=== PATIENT | male | born 1980 | race Two or more races ===

== ENCOUNTER 2024-08-24 19:47 | Inpatient (IN) | payer OTHER ==
[~2024-08-24] VITALS: Ht 182.9 cm; Wt 109.8 kg
--- NOTE | 2024-08-24 20:34 | NUR ---
SE RECIBE PACIENTE ALERTA Y ORIENTADO X3, REFIERE TENER DOLRO ABDOMINAL QUE SE IRRADIA HACIA LOS COSTADOS Y NAUSEAS.
[2024-08-24] MEDS ORDERED: 0.9 % SODIUM CHLORIDE 1,000 ML IV STA (21:16)
[2024-08-24] MEDS ORDERED: KETOROLAC TROMETHAMINE 30 MG VIAL IV ONE (21:30)
[2024-08-24] MEDS ORDERED: ACETAMINOPHEN 500 MG GEL..CAP PO ONE (21:30)
[2024-08-24] MEDS ORDERED: CEFTRIAXONE SODIUM 2,000 MG VIAL IV ONE (21:30)
[2024-08-24] MEDS ORDERED: ONDANSETRON HCL 2 MG/ML VIAL IV ONE (21:30)
[2024-08-24 21:49] LABS: HEMATOCRIT 47.8 % (39.0-48.0); HEMOGLOBIN 16.4 g/dL (13-16.00); MEAN CELL VOLUME 91.8 fL (80.0-100.00); MEAN CORPUSCULAR HEMOGLOBIN 31.4 pg (27.00-32.0); MEAN CORPUSCULAR HGB CONC 34.2 g/dl (32.0-36.0); PLATELET COUNT 202 K/uL (150-450); RED BLOOD COUNT 5.21 M/uL (4.00-6.00); RED CELL DISTRIBUTION WIDTH 13.6 % (11.5-14.5)
--- NOTE | 2024-08-24 21:52 | NUR ---
PTE ALERTA Y ORIENTADO X3, SE EDUCA SOBRE TX MEDICO,REFIERE ACEPTAR. SE CANALIZA Y SE COLECTAN MUESTRAS DE LAB BAJO MEDIDAS ASEPTICAS. SE ADMINSITRAN MEDS VIOLET ORDEN MEDICA. SE NOTIFICA ESTUDIO PENDIENTE.
[2024-08-24 22:05] LABS: PH,URINE 5.5 (5.0-8.0); URINE APPEARANCE Clear; URINE BILIRRUBIN Negative (NEGATIVE); URINE BLOOD Trace; URINE COLOR Dark Yellow; URINE GLUCOSE Negative (NEGATIVE); URINE KETONE Trace (NEGATIVE); URINE LEUKOCYTE Negative; URINE NITRATE Negative; URINE PROTEIN 30 (NEGATIVE)
[2024-08-24 22:07] LABS: URINE BACTERIA 15.9 uL (0.0-1933); URINE CAST 1.62 uL (0.0-1.40); URINE EPITHELIAL CELLS 25.6 uL (0.0-38.8); URINE RBC 15.7 uL (0.0-20.8)
[2024-08-24 22:12] LABS: CALCIUM 9.1 mg/dL (8.5-10.1); CREATININE SERUM 0.94 mg/dL (0.70-1.30); GFR 88.01; POTASSIUM 3.73 mEq/L (3.5-5.1)
[2024-08-24] MEDS ORDERED: METRONIDAZOLE/SODIUM CHLORIDE 500 MG/100 ML PIGGYBACK IV ONE (23:00)
[2024-08-24] MEDS ORDERED: CIPROFLOXACIN IN 5 % DEXTROSE 400 MG/200 ML PIGGYBAG IV ONE (23:00)
--- NOTE | 2024-08-24 23:09 | NUR ---
SE RECIBE PTE ALERTA Y ORIENTADO X3 EN CHAD BAJA Y BARANDAS ELEVADAS POR JOEL SEGURIDAD CON CANALIZACION #20 EN BRAZO TANIA POR EL CUAL ESTA RECIBIENDO INFUSION DE 0.9% NSS FULL DRIP. PENDIENTE CONSULTA CON DR JIM ASTUDILLO POR DIVERTICULITIS.
[2024-08-24] MEDS ORDERED: 0.9 % SODIUM CHLORIDE 1,000 ML IV SCH (23:15)
[2024-08-24] MEDS ORDERED: HYOSCYAMINE SULFATE 0.125 MG TAB.SUBL PO ONE (23:30)
[2024-08-24] MEDS ORDERED: ACETAMINOPHEN 500 MG GEL..CAP PO PRN (23:30)
[2024-08-24] MEDS ORDERED: ONDANSETRON HCL 4 MG in 0.9 % SODIUM CHLORIDE 50 ML IV PRN (23:30)
[2024-08-24] MEDS ORDERED: ENALAPRILAT DIHYDRATE 1.25 MG/ML VIAL IV PRN (23:30)
[2024-08-24] MEDS ORDERED: MORPHINE SULFATE 4 MG/ML CARTRIDGE IV SCH (23:30)
[2024-08-24] MEDS ORDERED: MORPHINE SULFATE 4 MG/ML CARTRIDGE IV PRN (23:30)
[2024-08-24] MEDS ORDERED: MORPHINE SULFATE 2 MG/ML CARTRIDGE IV PRN (23:30)
[2024-08-25] MEDS ORDERED: PIPERACILLIN/TAZOBACTAM SODIUM 3.375 GM in DEXTROSE 5 % IN WATER 100 ML IV SCH
[2024-08-25 00:46] LABS: INR 1.16; PARTIAL THROMBOPLASTIN TIME 30.3 SECONDS (22.0-34.0); PROTHROMBIN TIME 12.5 SECONDS (9.0-11.5)
[2024-08-25 02:03] VITALS: BP 136/87; O2SAT 97
[2024-08-25 05:10] VITALS: BP 161/100
[2024-08-25] MEDS ORDERED: ENOXAPARIN SODIUM 40 MG/0.4 ML SYRINGE SUBCUTANEO SCH (09:00)
[2024-08-25] MEDS ORDERED: FAMOTIDINE/PF 20 MG in 0.9 % SODIUM CHLORIDE 8 ML IV PUSH SCH (09:00)
[2024-08-25 09:28] VITALS: BP 140/80
[2024-08-25 18:57] VITALS: BP 160/84; O2SAT 97
[2024-08-26 01:31] VITALS: BP 157/94; O2SAT 95
[2024-08-26 08:12] LABS: HEMATOCRIT 41.6 % (39.0-48.0); HEMOGLOBIN 13.9 g/dL (13-16.00); MEAN CELL VOLUME 93.4 fL (80.0-100.00); MEAN CORPUSCULAR HEMOGLOBIN 31.3 pg (27.00-32.0); MEAN CORPUSCULAR HGB CONC 33.5 g/dl (32.0-36.0); PLATELET COUNT 174 K/uL (150-450); RED BLOOD COUNT 4.46 M/uL (4.00-6.00)
[2024-08-26 08:19] VITALS: BP 117/72
[2024-08-26 09:04] LABS: ALBUMIN 3.1 gm/dL (3.4-5.0); BILIRUBIN TOTAL 1.65 mg/dL (0.3-1.2); CALCIUM 8.6 mg/dL (8.5-10.1); CREATININE SERUM 1.06 mg/dL (0.70-1.30); GFR 76.61; GLOBULINA 3.5 G/DL (2.4-3.5); POTASSIUM 3.87 mEq/L (3.5-5.1); TOTAL PROTEIN 6.6 gm/dL (6.4-8.2)
[2024-08-26 18:15] VITALS: BP 170/110; O2SAT 100
[2024-08-26 22:37] VITALS: BP 156/90
[2024-08-27 01:45] VITALS: BP 154/90; O2SAT 98
[2024-08-27 09:19] VITALS: BP 132/76
[2024-08-27] MEDS ORDERED: CIPRO500 MG PO (10:14)
[2024-08-27] MEDS ORDERED: PEPCID AC20 MG PO (10:14)
== END 2024-08-27 12:04 | disposition home or self-care (01) | DRG 872 ==
LOC: ER 19:50 → MEDJ 23:20
PROVIDERS: Emergency Medicine; General Practice; Internal Medicine; ADMIT Student in an Organized Health Care Education/Training Program; ATTEND Student in an Organized Health Care Education/Training Program
PROC: BW21ZZZ Computerized Tomography (CT Scan) of Abdomen and Pelvis (ICD-10-PCS; principal; 2024-08-24)
DX: A41.9 Sepsis, unspecified organism (principal); K57.32 Diverticulitis of large intestine without perforation or abscess without bleeding